=== PATIENT | female | born 1960 | race Hispanic/Latino ===

== ENCOUNTER → 2019-07-16 | Outpatient (CLI) | payer BC | END | disposition home or self-care (01) | LOC: OIH 12:55 | PROVIDERS: ATTEND Internal Medicine | DX: M16.0 Bilateral primary osteoarthritis of hip (principal); M06.4 Inflammatory polyarthropathy; G95.89 Other specified diseases of spinal cord; I87.8 Other specified disorders of veins; M25.78 Osteophyte, vertebrae; G95.19 Other vascular myelopathies; M47.898 Other spondylosis, sacral and sacrococcygeal region | CPT/HCPCS: 72100; 72202; 73521 ==